=== PATIENT | male | born 1960 | race Caucasian/White ===

== ENCOUNTER → 2016-10-17 | Outpatient (CLI) | payer BC ==
[~2016-10-17] MED LIST: ENOX40IN SQ; FERR1TAB23; HYDR-5688 PO; OPTIRAY 320 IV PRN
--- NOTE | 2016-10-17 09:17 | DIAGNOSTIC IMAGING REPORT ---
ABDOMEN AND PELVIS CT WITH IV AND ORAL CONTRAST CT DOSE: HISTORY: colon mass TECHNIQUE: Multiaxial CT images of the abdomen and pelvis were performed following the use of intravenous and oral contrast. COMPARISON STUDY: None. FINDINGS: The lung bases are clear. Mild hepatic steatosis. There is a 6 mm indeterminate hypodense lesion within the right hepatic lobe at segment 7. The gallbladder, spleen, adrenal glands, and pancreas are unremarkable. Normal left kidney. Multiple prominent retroperitoneal lymph nodes measuring up to 9 mm in short axis diameter. A 2.1 cm right renal cyst. Tiny fat-containing umbilical hernia. Normal bladder. No pelvic lymphadenopathy. There is a metallic clip within the lumen of the rectosigmoid junction. No bowel wall thickening or obstruction. By report the patient is status post appendectomy. There are surgical clips at the cecal base. However, there is a distended fluid-filled 2.9 x 1.4 cm tubular structure at the cecal base at the expected location of the appendix. This raises the possibility of a mucocele of the residual appendix stump. IMPRESSION: 1. No definite evidence for metastatic disease within the abdomen or pelvis. 2. Multiple prominent retroperitoneal lymph nodes. These measure subcentimeter in short axis diameter. These bear watching on future examinations to ensure stability. 3. By report the patient is status post appendectomy. There are surgical clips at the cecal base. However, there is a distended fluid-filled 2.9 x 1.4 cm tubular structure at the cecal base at the expected location of the appendix. This raises the possibility of a mucocele of the residual appendix stump. Surgical consultation is recommended. 4. A 6 mm indeterminate hypodense lesion within the right hepatic lobe. Electronically signed by: Steven Hernandez M.D. 10/17/2016 9:16 AM Dictated Date/Time: 10/17/2016 9:02 AM
--- NOTE | 2016-10-17 09:20 | DIAGNOSTIC IMAGING REPORT ---
CHEST CT WITH CONTRAST CT DOSE: 1806.59 mGy.cm HISTORY: Colon neoplasm. colon mass TECHNIQUE: Multiaxial CT images of the chest were performed following the intravenous administration of contrast. COMPARISON: None. FINDINGS: 1 cm nodule right middle lobe. Lungs otherwise are clear. Mediastinal and hilar regions show no significant brad change. Axillary regions are unremarkable. Limited evaluation the upper abdomen is unremarkable. IMPRESSION: 1. 1 cm nodule right middle lobe. 2. Possibly of a primary or metastatic neoplastic process is considered 3. The study is otherwise unremarkable. Electronically signed by: Marquis Matthews M.D. 10/17/2016 9:19 AM Dictated Date/Time: 10/17/2016 9:17 AM
== END | disposition home or self-care (01) ==
LOC: C.CTS 08:34
PROVIDERS: ATTEND Colon & Rectal Surgery
DX: K63.9 Disease of intestine, unspecified (principal); E04.1 Nontoxic single thyroid nodule

== ENCOUNTER → 2016-11-20 | Outpatient (CLI) | payer BC ==
[~2016-11-20] MED LIST changes: -OPTIRAY 320 IV PRN
== END | disposition home or self-care (01) ==
LOC: C.CPL 14:00
PROVIDERS: ATTEND Surgery
DX: C18.9 Malignant neoplasm of colon, unspecified (principal); I87.8 Other specified disorders of veins

== ENCOUNTER 2016-11-26 06:52 | Day surgery (SDC) | payer BC ==
[2016-11-18 16:12] VITALS: Ht 177.8 cm; Wt 109.1 kg
[~2016-11-26] VITALS: Ht 177.8 cm; Wt 109.1 kg
[~2016-11-26 06:52] MED LIST changes: +CLINDAMYCIN IV 900 MG in DEXTROSE 5% ADD-VANTAGE 100ML 100 ML IV SCH; +FENTANYL CITRATE INJ 50 MCG/1 ML 2 ML VIAL ONE; -FERR1TAB23; -HYDR-5688 PO; +LACTATED RINGER'S 1000ML 1,000 ML IV SCH; +MIDAZOLAM HCL 1 MG/ML 2ML VIAL ONE; +PROPOFOL IV EMULSION 10 MG/ML 20 ML VIAL IV ONE
[2016-11-26] MEDS ORDERED: FERR1TAB23 (07:48)
[2016-11-26 07:53] VITALS: BP 155/85; PULSE 62; TEMP 36.7; O2SAT 99
[2016-11-26] MEDS ORDERED: HEPARIN SOD (PORCINE) 1000 UNIT/ML 10 ML VIAL ONE (08:02)
[2016-11-26] MEDS ORDERED: LIDOCAINE HCL 1% 20 ML VIAL ONE (08:02)
[2016-11-26] MEDS ORDERED: CEFAZOLIN SOD 1 GM VIAL ONE (08:02)
[2016-11-26] MEDS ORDERED: THROMBIN FOR SOLN 20000 UNIT KIT ONE (08:02)
--- NOTE | 2016-11-26 08:11 | History & Physical Bridge Note ---
H&P Re-Evaluation Bridge Note: I have examined the patient, reviewed the History & Physical and in the interval since the performance of the History & Physical I have noted the following changes of clinical significance: No changes noted
[2016-11-26] MEDS ORDERED: HYDR-5688 PO (08:25)
[2016-11-26] MEDS ORDERED: MIDAZOLAM HCL 1 MG/ML 2ML VIAL ONE (08:30)
[2016-11-26] MEDS ORDERED: FENTANYL CITRATE INJ 50 MCG/1 ML 2 ML VIAL ONE (08:37)
[2016-11-26] MEDS ORDERED: ATROPINE SULFATE 0.1 MG/ML 5ML SYR IV PRN (09:00)
[2016-11-26] MEDS ORDERED: EpHEDrine SULFATE INJ 50 MG/ML AMP IV PRN (09:00)
--- NOTE | 2016-11-26 09:12 | [facility] Operative Report ---
Operative Report Operative Date Nov 26, 2016. Pre-Operative Diagnosis Need for IV access Post-Operative Diagnosis same, colon cancer Procedure(s) Performed port placement Surgeon Dr Kirkland Estimated Blood Loss 5ml Findings placed via Lt cephalic vein Specimens none Anesthesia local/ sedation Complication(s) None Disposition Recovery Room / PACU Description of Procedure Patient was brought in the operating room placed in the table in supine position. A roll was placed between his shoulders his upper chest was prepped and draped in usual fashion. 1% plain lidocaine was used to anesthetize the skin and subcutaneous tissue over the left deltopectoral groove. Incisions may carry dissection down identifying a cephalic vein which was ligated distally. The vein was then opened and a catheter passed under fluoroscopy into the Superior Vena cava. Catheter was aspirated and flushed with heparinized solution. A pocket was then fashioned in the chest wall the port attached to the catheter and then placed in the pocket. The port was secured using 3-0 Prolene suture to the chest wall and then the wound irrigated with antibiotic solution. Subcutaneous tissue was reapproximated using 2-0 chromic catgut suture and the skin reapproximated using 4-0 nylon suture. The port had been flushed with heparinized solution. Dressing applied and patient transferred to recovery room in stable condition. I attest to the content of the Intraoperative Record and any orders documented therein. Any exceptions are noted below.
[2016-11-26] MEDS ORDERED: HYDROCODONE/ACETAMOPHEN 5/325MG TAB PO PRN ×2 (09:15)
[2016-11-26] MEDS ORDERED: ONDANSETRON INJ 2 MG/ML 2 ML VIAL IV PRN (09:15)
--- NOTE | 2016-11-26 09:16 | Discharge Instructions ---
Discharge Instructions Date of Service Nov 26, 2016. Visit Reason for Visit: Adenocarcinoma Of Colon, Poor Venous Access Discharge Discharge Diagnosis / Problem: colon cancer, port Discharge Goals Goal(s): Decrease discomfort, Improve function, Improve disease control Activity Recommendations Activity Limitations: as noted below Lifting Limitations: no more than 25 pounds Exercise/Sports Limitations: until after follow-up appointment May Resume Sexual Activity: when tolerated Shower/Bathe: tomorrow Driving or Machine Use: resume 1 day after discharge Anesthesia . Post Anesthesia Instructions: If you have had General Anesthesia or IV Sedation: * Do not drive today. * Resume driving when surgeon permits. * Do not make important decisions or sign legal documents today. * Call surgeon for: 1. Temperature elevations greater than 101 degrees F. 2. Uncontrollable pain. 3. Excessive bleeding. 4. Persistent nausea and vomiting. 5. Medication intolerance (nausea, vomiting or rash). * For nausea and vomiting use only clear liquids such as: tea, soda, bouillon until nausea subsides, then gradually increase diet as tolerated. * If you have any concerns or questions, call your surgeon's office. If physician is unavailable and it is an emergency, call 911 or go to the nearest emergency room. . Diet Recommendations Recommended Home Diet: resume previous diet Procedures Procedures Performed: Infusaport Insertion Left Cephalic Vein Pending Studies Studies pending at discharge: no Medical Emergencies . Who to Call and When: Medical Emergencies: If at any time you feel your situation is an emergency, please call 911 immediately. . Non-Emergent Contact Non-Emergency issues call your: Primary Care Provider, Surgeon . . "Provider Documentation" section prepared by Aric Kirkland. .
--- NOTE | 2016-11-26 09:31 | DIAGNOSTIC IMAGING REPORT ---
SINGLE VIEW CHEST CLINICAL HISTORY: Infusion port placement. FINDINGS: An AP, portable, upright chest radiograph is correlated with chest CT dated 10/17/2016. The examination is degraded by portable technique and apical lordotic positioning. A left subclavian central venous infusion port has been placed. The tip of the catheter projects over the SVC. The heart is mildly enlarged. The mediastinal contour is within normal limits. There are low lung volumes and bibasilar atelectasis. The lungs and pleural spaces are otherwise clear. No pneumothorax is seen. The bony thorax is grossly intact. IMPRESSION: 1. A left subclavian central venous infusion port has been placed. No pneumothorax is seen post procedure. 2. Low lung volumes. The lungs are otherwise clear. Electronically signed by: Magno Garcia M.D. 11/26/2016 9:29 AM Dictated Date/Time: 11/26/2016 9:26 AM
[2016-11-26 09:35] VITALS: BP 129/76; PULSE 61; TEMP 36.6; O2SAT 100
--- NOTE | 2016-11-26 09:43 | Anesthesiology Progress Note ---
Anesthesia Post Op Note Date & Time Nov 26, 2016 at 09:43 Vital Signs Pain Intensity: 0 Vital Signs Past 12 Hours Date Time Temp Pulse Resp B/P (MAP) Pulse Ox O2 Delivery O2 Flow Rate FiO2 11/26/16 09:30 36.2 60 16 120/79 100 Oxymask 3 11/26/16 09:20 67 16 142/86 100 Oxymask 3 11/26/16 09:13 36.1 65 16 144/85 100 Oxymask 10 11/26/16 07:53 36.7 62 20 155/85 (108) 99 Room Air Notes Mental Status: alert / awake / arousable, participated in evaluation Pt Amnestic to Procedure: Yes Nausea / Vomiting: adequately controlled Pain: adequately controlled Airway Patency, RR, SpO2: stable & adequate BP & HR: stable & adequate Hydration State: stable & adequate Anesthetic Complications: no major complications apparent
[2016-11-26 10:05] VITALS: BP 133/78; PULSE 68; O2SAT 100
== END 2016-11-26 10:15 | disposition home or self-care (01) ==
LOC: C.ACU 06:52
PROVIDERS: ATTEND Surgery
DX: C18.9 Malignant neoplasm of colon, unspecified (principal)

== ENCOUNTER → 2017-05-20 | Outpatient (CLI) | payer BC ==
[~2017-05-20] MED LIST changes: -CLINDAMYCIN IV 900 MG in DEXTROSE 5% ADD-VANTAGE 100ML 100 ML IV SCH; -ENOX40IN SQ; -FENTANYL CITRATE INJ 50 MCG/1 ML 2 ML VIAL ONE; +FERR1TAB23; +HYDR-5688 PO; -LACTATED RINGER'S 1000ML 1,000 ML IV SCH; -MIDAZOLAM HCL 1 MG/ML 2ML VIAL ONE; +OPTIRAY 320 IV PRN; -PROPOFOL IV EMULSION 10 MG/ML 20 ML VIAL IV ONE
--- NOTE | 2017-05-20 15:12 | DIAGNOSTIC IMAGING REPORT ---
ABD/PELVIS IV AND ORAL CONT CLINICAL HISTORY: 57 years-old Male presenting with ADENOCARCINOMA OF COLON. TECHNIQUE: Multidetector CT of the abdomen and pelvis was performed after the administration of oral and intravenous contrast. IV contrast: 116 mL of Optiray 320. A dose lowering technique was used consistent with the principles of ALARA (as low as reasonably achievable). COMPARISON: 10/17/2016. CT DOSE (mGy.cm): The estimated cumulative dose is 1118.14. FINDINGS: Electrotype Molder topogram: Unremarkable. Lung bases: Minimal basilar opacities, likely atelectasis. Normal heart size. No pericardial or pleural effusion. Liver: Normal morphology. Previously noted 6 mm hypodensity in segment 7 is unchanged, likely hepatic cyst or hamartoma (series 6 image 64). No new focal lesion. Patent hepatic vasculature. Biliary: No intrahepatic or extrahepatic biliary ductal dilatation. Normal gallbladder. Pancreas: Mild parenchymal atrophy. Spleen: Normal. Adrenal glands: Normal. Kidneys and ureters: Well-defined hypodensity in the right kidney likely simple cyst. No hydronephrosis. No nephrolithiasis. Ureters normal. Bladder: Mild circumferential bladder wall thickening possibly indicating chronic outlet obstruction. Pelvic organs: Prostate enlargement likely secondary to benign prostatic hyperplasia. Bowel: Postsurgical changes of right hemicolectomy with a patent ileocolic anastomosis in the mid abdomen. Focus of fat attenuation with peripheral rim of soft tissue density and mild surrounding fat infiltration suggests an omental infarct at the level of the transverse colon suture margin. No bowel obstruction. Peritoneal cavity: No free fluid or intraperitoneal gas. Lymph nodes: Numerous prominent subcentimeter retroperitoneal lymph nodes as on prior exam. These have not decreased in size and are stable to minimally increased in prominence. No new sites of enlarged lymph nodes. Vasculature: Atherosclerosis of the normal caliber abdominal aorta. IVC patent. Abdominal wall: Normal. Musculoskeletal: Degenerative changes of the spine. Bilateral pars defects of L5. No destructive osseous lesion. IMPRESSION: 1. Interval right hemicolectomy with ileocolic anastomosis. No residual recurrent disease. No evidence of metastatic disease in abdomen or pelvis. 2. Borderline enlarged retroperitoneal lymph nodes are stable to minimally increased in prominence since the prior exam. These are indeterminate and could be reactive, especially given the absence of an equivocal progression. 3. 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 4. Chronic bladder outlet obstruction secondary to prostatomegaly. Electronically signed by: Jian Kingsley M.D. 05/20/2017 3:11 PM Dictated Date/Time: 05/20/2017 3:01 PM
--- NOTE | 2017-05-20 17:09 | DIAGNOSTIC IMAGING REPORT ---
CT OF THE CHEST WITH IV CONTRAST CLINICAL HISTORY: Adenocarcinoma of colon. COMPARISON STUDY: Chest CT October 17, 2016 and chest radiograph November 26, 2016. TECHNIQUE: Following IV administration of 116 mL of Optiray-320, helical axial images of the chest were obtained. Sagittal and coronal reconstructions were viewed as well as maximal intensity projections on an independent 3-D workstation. A dose lowering technique was utilized adhering to the principles of ALARA. CT DOSE: 1118.14 mGy.cm FINDINGS: No enlarged axillary, mediastinal or hilar lymph nodes are present. A few prominent right eyelid lymph nodes are unchanged since CT of October 17, 2016 and likely benign. The size of the heart is normal. There is no pericardial effusion. Central airways are patent. A 1 cm perifissural nodule within the right middle lobe shown on axial image 143 of [address] of October 17, 2006 13. A 4 mm subpleural left upper lobe nodule shown image 48 is unchanged. A 5 mm groundglass nodule within the right upper lobe shown on image 77 was likely present on prior study but obscured by atelectasis. No suspicious osseous lesions are present. The abdomen and pelvis will be reported separately. IMPRESSION: 1. No pathologically enlarged thoracic lymph nodes. Stable prominent right hilar nodes which are likely benign. No evidence for thoracic metastatic disease. 2. Stable 1 cm perifissural right middle lobe nodule. This is likely benign. 3. No change in a 5 mm groundglass right upper lobe nodule which is indeterminate and can be assessed on subsequent studies to ensure stability. Electronically signed by: Alpesh Stark M.D. 05/20/2017 5:08 PM Dictated Date/Time: 05/20/2017 2:58 PM
== END | disposition home or self-care (01) ==
LOC: C.CTS 14:22
PROVIDERS: ATTEND Nurse Practitioner Family
DX: N40.1 Benign prostatic hyperplasia with lower urinary tract symptoms (principal); C18.4 Malignant neoplasm of transverse colon; Z90.49 Acquired absence of other specified parts of digestive tract; Z98.0 Intestinal bypass and anastomosis status